=== PATIENT | male | born 1980 | race Caucasian/White ===

== ENCOUNTER 2020-07-30 22:35 | Emergency (ER) | payer OTHER, SELFPAY ==
--- NOTE | ~2020-07-30 | XR_ITS ---
XR shoulder LT min 2V DATE: 07/30/2020 23:56 INDICATION: Left shoulder pain TECHNIQUE: 4 views COMPARISON: None FINDINGS: No fracture, dislocation, periosteal reaction or bone destruction or abnormal soft tissue c alcification. IMPRESSION: No significant abnormality Reviewed, dictated and finalized at location A. IMPRESSION: No significant abnormality
--- NOTE | ~2020-07-30 | XR_ITS ---
XR shoulder RT min 2V DATE: 07/30/2020 23:56 INDICATION: Right shoulder pain TECHNIQUE: 4 views COMPARISON: None FINDINGS: There is degenerative spurring and joint space height at the acromioclavicular joint. No fracture or dislocation, periosteal reaction or bone destruction or abnormal soft tissue calcifica tion. IMPRESSION: Degenerative change at the right acromioclavicular joint Reviewed, dictated and finalized at location A.
[2020-07-30 22:51] VITALS: BP 155/99; PULSE 134; RESP 22; TEMP 36.6; O2SAT 98
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
--- NOTE | 2020-07-30 23:45 | ECG_ITS ---
Measurements Intervals [place] Rate: 121 P: 70 WI: 168 QRS: 78 QRSD: 96 T: 54 QT: 320 QTc: 456 Interpretive Statements SINUS TACHYCARDIA BASELINE WANDER- I, II, V4 ABNORMAL ECG Electronically Signed On 07-31-2020 6:42:07 CDT by Torey Carrizales D.O.
[2020-07-31 00:34] VITALS: BP 134/85; PULSE 99; RESP 18; O2SAT 100
[2020-07-31 00:49] VITALS: BP 138/86; PULSE 99; RESP 18; O2SAT 99
== END 2020-07-31 01:05 ==
PROVIDERS: Emergency Provider General Practice
DX: M25.512 Pain in left shoulder (principal); M25.511 Pain in right shoulder; M54.9 Dorsalgia, unspecified; G89.29 Other chronic pain; R00.0 Tachycardia, unspecified
CPT/HCPCS: 73030; 93005; 99284

== ENCOUNTER 2020-08-10 19:03 | Emergency (ER) | payer OTHER, SELFPAY ==
--- NOTE | 2020-08-10 19:09 | ED.GENADULT ---
HPI - General Adult General Chief complaint: Extremity Injury, Lower Stated complaint: right knee pain Time Seen by Provider: 08/10/20 19:09 Source: patient and RN notes reviewed Mode of arrival: ambulatory Limitations: no limitations History of Present Illness HPI narrative: 40-year-old male presents with concern for right lower leg redness, swelling, tenderness, pain that started several days ago. Reports he fell and cut his knee, symptoms started after that. He denies any recent immobilization, hospitalization, long car rides, airplane rides, does not smoke. Denies any chest pain, shortness of breath. Denies fever, malaise, chills, sweats. Denies limited range of motion, reports pain with weightbearing and range of motion. MD complaint: Leg pain Related Data Allergies Allergy/AdvReac Type Severity Reaction Status Date / Time No Known Allergies Allergy Unknown Unverified 07/30/20 22:38 Review of Systems Review of Systems: Narrative: CONSTITUTIONAL: Denies malaise, chills, sweats, or fever. CARDIOVASCULAR: Denies chest pain, palpitations RESPIRATORY: Denies cough or dyspnea. SKIN: Reports right lower leg redness, warmth, tenderness, swelling MUSCULOSKELETAL: Denies musculoskeletal pain NEUROLOGIC: Denies numbness, weakness All systems reviewed & are unremarkable except as noted in HPI and below PMFSH Past Medical History Medical History Chronic pain Surgical History Surgical History (Updated 07/31/20 @ 00:29 by Brooke Robison MD) No significant past surgical history Social History Social History Gender identity (if verbalized by the patient): Male Comments At time of signature, agree with nursing past medical, surgical, social and family history. There is no relevant family history pertinent to the presenting complaint Exam Narrative: Exam Narrative: GENERAL: Well-appearing, well-nourished, and in no acute distress. HEAD: Normocephalic, atraumatic. EYES: PERRLA, conjunctivae clear NECK: Supple. CHEST: Speaks in full sentences. No respiratory distress. HEART: Regular rate and rhythm. Normal and equal peripheral pulses. EXTREMITIES: Right lower leg has normal strength and sensation, normal range of motion. 5/5 strength with knee flexion and extension. Normal sensation with sensitivity to light touch and pain. No skin tenting, no devitalized tissue or atrophy, no trophic changes, no obvious deformity, alignment normal, no point tenderness, nearby joints and structures intact. Distal pulses palpable and equal bilaterally, skin warm, dry, pink. Capillary refill less than 3 seconds. SKIN: Warm, dry, no rash. Moderate right lower leg circumferential edema, erythema, warmth, tenderness not involving the knee. 2 linear scabs noted to the anterior right leg approximately 4 cm long. NEURO: Alert and oriented x3. PSYCH: Normal mood and affect Course Course Emergency Course: Patient is aware of diagnosis, understands and agrees to treatment plan. Anticipatory guidance given. Patient agrees to follow-up as directed and is aware of reasons to seek care at the emergency department. Portions of this record may have been created with voice recognition software Vital Signs Vital signs: Vital Signs Temperature 99.1 F 08/10/20 19:13 Pulse Rate 108 H 08/10/20 19:13 Respiratory Rate 16 08/10/20 19:13 Blood Pressure 132/82 08/10/20 19:13 Pulse Oximetry 99 08/10/20 19:13 Temperature 99.1 F 08/10/20 19:13 Pulse Rate 108 H 08/10/20 19:13 Respiratory Rate 16 08/10/20 19:13 Blood Pressure 132/82 08/10/20 19:13 Pulse Oximetry 99 08/10/20 19:13 Reviewed. Medical Decision Making MDM Narrative Medical decision making narrative: Exam findings and show no acute concerns or changes; patient is non-toxic appearing and is in no distress. Patient is appropriate for outpatient treatment and follow-up. Differential Diagnosis Differential Diagnosis:
[2020-08-10 19:13] VITALS: BP 132/82; PULSE 108; RESP 16; TEMP 37.3; O2SAT 99
== END 2020-08-10 19:20 | disposition home or self-care (01) ==
PROVIDERS: Emergency Provider Nurse Practitioner
DX: L03.115 Cellulitis of right lower limb (principal)
CPT/HCPCS: 99213; G0463

== ENCOUNTER 2020-10-24 23:21 | Emergency (ER) | payer OTHER, SELFPAY ==
--- NOTE | ~2020-10-24 | XR_ITS ---
XR shoulder LT min 2V DATE: 10/25/2020 00:19 INDICATION: Left shoulder pain TECHNIQUE: 4 views COMPARISON: None FINDINGS: No fracture or dislocation, periosteal reaction or bone destruction. IMPRESSION: No fracture or dislocation Reviewed, dictated and finalized at location A. UNICATIONS ADMINISTRATOR IMPRESSION: No fracture or dislocation
--- NOTE | ~2020-10-24 | XR_ITS ---
XR elbow RT 2V DATE: 10/25/2020 00:18 INDICATION: Elbow pain TECHNIQUE: AP and lateral views COMPARISON: None FINDINGS: There is minimal dorsal olecranon process spurring. No fracture or dislocation or joint effusion. IMPRESSION: No fracture or dislocation or joint effusion Reviewed, dictated and finalized at location A. CTOR DATA ARCHITECTURE
--- NOTE | ~2020-10-24 | XR_ITS ---
XR hip LT 2V w AP pelvis DATE: 10/25/2020 00:19 INDICATION: Left hip pain after fall TECHNIQUE: AP pelvis. AP and lateral views of left hip COMPARISON: None FINDINGS: No recent pelvic fracture or left hip fracture or dislocation is detected. There are smooth apparently chronic lucencies along the lateral margin of the left acetabulum. If there is strong con cern for pelvic or left acetabular fracture, consider CT pelvis examination. The pubic symphysis and sacroiliac joints are intact. IMPRESSION: No apparent recent pelvic fracture Reviewed, dictated and finalized at location A. INGS DRAFTER
[2020-10-24 23:22] VITALS: BP 159/105; PULSE 111; RESP 16; TEMP 36.8; O2SAT 96
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
[2020-10-24] MEDS: TETANUS,DIPHTHERIA,AC PERTUSSIS ADULT (0.5 ML) BOOSTRIX IM (23:47)
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
== END 2020-10-25 01:03 ==
PROVIDERS: Emergency Provider Emergency Medicine
DX: S00.83XA Contusion of other part of head, initial encounter (principal); S70.02XA Contusion of left hip, initial encounter; M25.521 Pain in right elbow; Z23 Encounter for immunization; W19.XXXA Unspecified fall, initial encounter; Y35.833A Legal intervention involving a conducted energy device, suspect injured, initial encounter
CPT/HCPCS: 73030; 73070; 73502; 90471; 90715; 99284

== ENCOUNTER 2021-07-03 08:31 | Emergency (ER) | payer OTHER, SELFPAY ==
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
--- NOTE | ~2021-07-03 | XR_ITS ---
EXAMINATION: [id number] INDICATION: Chest pain TECHNIQUE: A frontal view of the chest and 3 views of the right ribs were obtained. COMPARISON: None. FINDINGS: The lung volumes are low. The lungs are free of acute opacities. No pleural effusion or pne umothorax is seen. No displaced rib fracture is identified. Contrast from earlier CT partially opacif ies the urinary tract. IMPRESSION: 1. No acute cardiopulmonary abnormality or evidence of displaced rib fracture. Reviewed, dictated and finalized at location A.
[2021-07-03 08:41] VITALS: RESP 20; O2SAT 99
[2021-07-03 08:45] VITALS: BP 121/94; PULSE 78; RESP 14; TEMP 36.9; O2SAT 99
--- NOTE | 2021-07-03 08:57 | PC.NURSE ---
Pt. refusing chest x ray, refusing to sit up for x-ray until patient gets pain meds and a IV.
--- NOTE | 2021-07-03 09:21 | ED.FALL ---
HPI - Fall General Chief Complaint: Fall Stated Complaint: fall, rib pain Time Seen by Provider: 07/03/21 08:53 Source: RN notes reviewed History of Present Illness HPI Narrative: Patient presents to emergency department from home for right-sided rib and abdominal pain. Patient states he fell yesterday states he slipped and fell and landed on his right side states he had severe pain in his right ribs and abdomen since that time denies striking his head or any loss of consciousness states he is not taking pain medication at home states pain is worse with movement and deep inspiration denies any fevers or chills shortness of breath nausea vomiting or any other symptoms patient states he was attempting note pull up his pants in his bedroom when he slipped on something on the floor and believes he struck something on his right side but does not recall what he struck Related Data Allergies Allergy/AdvReac Type Severity Reaction Status Date / Time No Known Allergies Allergy Unknown Unverified 07/30/20 22:38 Review of Systems Review of Systems: Gen.: Denies fevers or chills Eyes: Denies eye pain or visual change ENT: Denies congestion Respiratory: Denies shortness of breath or cough CV: See HPI GI: Reports abdominal pain denies nausea vomiting or diarrhea denies hematuria Musculoskeletal: Denies back pain or muscle pain Neuro: Denies numbness, tingling, weakness or focal weakness Skin: Denies rash Except as documented, all other systems reviewed and negative [facility] Past Medical History Medical History (Updated 07/03/21 @ 10:41 by Shane Vargas DO) Chronic pain Surgical History Surgical History No significant past surgical history Social History Social History (Updated 07/03/21 @ 09:22 by Shane Vargas DO) Smoking status: Never smoker Gender identity (if verbalized by the patient): Male Exam Narrative: APPEARANCE: No acute distress, nontoxic, resting in bed EYES: EOMI HEENT: Normocephalic, atraumatic, OMM RESPIRATORY: No respiratory distress Clear to auscultation bilaterally with no rhonchi wheezing or rales. CARDIOVASCULAR: Regular rate and rhythm without murmurs rubs or gallops. Chest: Tender palpation of the right anterior lateral chest wall and regions of ribs 6 through 10 Swelling or ecchymosis pain increased inspiration and rotation of the torso ABDOMINAL: Soft, nondistended, tender palpation right upper quadrant right lower quadrant no tenderness left upper quadrant left lower quadrant no rebound or guarding MUSCULOSKELETAl: Moves all extremities. No clubbing, cyanosis or edema. NEURO: Awake and alert x 4. Following commands, speech normal, no focal deficits SKIN:: Warm, dry. No rashes lesions or abrasions PSYCHIATRIC: Normal affect/mood, Course Course Emergency Course: Discussed with my general surgeon Dr. Barahona agrees with plan for transfer Discussed with patient results of work-up discussed need for transfer. [facility] department accepts patient at this time Vital Signs Vital signs: Vital Signs Respiratory Rate 20 07/03/21 08:41 Pulse Oximetry 99 07/03/21 08:41 Temperature 98.4 F 07/03/21 08:45 Pulse Rate 80 07/03/21 10:42 Respiratory Rate 12 07/03/21 10:42 Blood Pressure 102/59 L 07/03/21 10:42 Pulse Oximetry 99 07/03/21 10:42 MDM - Fall Lab Data Result diagrams: 07/03/21 09:40 07/03/21 09:51 Labs: Lab Results 07/03/21 07/03/21 07/03/21 Range/Units 09:40 09:40 09:40 WBC 7.8 (4.5-10.0) K/mm3 RBC 4.16 L (4.6-6.20) M/mm3 Hgb 12.7 L (14.0-18.0) g/dL Hct 36.8 L (42.0-52.0) % MCV 88.5 (80-100) fl MCH 30.5 (26-34) pg MCHC 34.5 (32-36) g/dl RDW 12.7 (11.5-14.5) % Plt Count 189 (150-375) k/mm3 MPV 9.0 (7.4-10.4) fl Immature Gran % (Auto) 0
[2021-07-03] MEDS: MORPHINE SULFATE (*CRX) 4 MG/ML INJ IV PUSH (09:40)
[2021-07-03 09:52] LABS: Basophils Percent Auto 0.4 % (0.2-1.2); Eosinophils Absolute Auto 0.1 K/mm3 (0-0.3); Eosinophils Percent Auto 0.9 % (0-4.4); Hematocrit 36.8 % (42.0-52.0); Hemoglobin 12.7 g/dL (14.0-18.0); Immature Granulocyte Absolute 0.01 K/mm3 (0.00-0.031); Immature Granulocyte Percent A 0.1 % (0-0.5); Lymphocytes Absolute Auto 2.09 K/mm3 (0.9-3.2); Lymphocytes Percent Auto 26.8 % (18.3-44.2); Mean Corpuscular HGB Conc 34.5 g/dl (32-36); Mean Corpuscular Hemoglobin 30.5 pg (26-34); Mean Corpuscular Volume 88.5 fl (80-100); Monocytes Absolute Auto 0.6 K/mm3 (0.1-0.6); Monocytes Percent Auto 7.2 % (2.6-8.5); Neutrophils Percent Auto 64.6 % (45.5-73.1); Platelet Count Result 189 k/mm3 (150-375); Red Blood Count 4.16 M/mm3 (4.6-6.20); Red Cell Distribution Width 12.7 % (11.5-14.5); White Blood Count 7.8 K/mm3 (4.5-10.0)
[2021-07-03 09:54] LABS: Estimated CRCL calculation 142 ml/min; Estimated Glomerular Filt Rate > 60
[2021-07-03 10:11] LABS: Alanine Aminotransferase 107 U/L (4-50); Albumin Level 4.3 g/dL (3.5-5.1); Alkaline Phosphatase 45 U/L (38-126); Anion Gap 4 mmol/L (8-16); Aspartate Amino Transferase 62 U/L (17-59); Bilirubin,Total 1.4 mg/dL (0.2-1.3); Blood Urea Nitrogen 12 mg/dL (9-20); Calcium 8.8 mg/dL (8.4-10.2); Carbon Dioxide 26 mmol/L (22-30); Chloride 106 mmol/L (98-107); Estimated CRCL calculation 142 ml/min; Estimated Glomerular Filt Rate > 60; Glucose 138 mg/dL (65-110); Potassium 4.6 mmol/L (3.4-5.0); Sodium 136 mmol/L (137-145)
[2021-07-03 10:29] LABS: INR 1.1; Prothrombin Time 14.1 Seconds (11.1-14.7)
[2021-07-03 10:30] LABS: Partial Thromboplastin Time 27.9 SECONDS (22.3-36.8)
[2021-07-03] MEDS: SODIUM CHLORIDE 0.9% IV 1,000 ML 999 ML IV CONT (10:41)
[2021-07-03 10:42] VITALS: BP 102/59; PULSE 80; RESP 12; O2SAT 99
--- NOTE | 2021-07-03 10:45 | PC.NURSE ---
[facility] no cem [facility] accepted trans to [facility] ETA 15min Trip [id number]
[2021-07-03 11:20] VITALS: BP 135/76; PULSE 90; RESP 14; O2SAT 99
== END 2021-07-03 11:30 | disposition short-term general hospital (02) ==
PROVIDERS: Emergency Provider Emergency Medicine
DX: S36.032A Major laceration of spleen, initial encounter (principal); R07.89 Other chest pain; W01.0XXA Fall on same level from slipping, tripping and stumbling without subsequent striking against object, initial encounter
CPT/HCPCS: 36415; 71101; 74177; 80053; 85025; 85610; 85730; 86850; 86900; 86901; 96361; 96374; 99285; J2270; J7030; Q9967

== ENCOUNTER 2021-09-04 17:00 | Observation (INO) | payer OTHER, SELFPAY ==
--- NOTE | ~2021-09-04 | XR_ITS ---
EXAMINATION: XR elbow LT min 3V DATE: 09/04/2021 18:17 INDICATION: Left elbow pain and swelling. TECHNIQUE: 4 views of left elbow were obtained. COMPARISON: None. FINDINGS: Bone alignment is normal. No fracture. Joint spaces are well maintained. There is no elbow joint effusion. IMPRESSION: 1. No fracture. Reviewed, dictated and finalized at location A. IMPRESSION: 1. No fracture.
[2021-09-04 17:09] VITALS: BP 116/66; PULSE 90; RESP 18; TEMP 36.8; O2SAT 100
--- NOTE | 2021-09-04 17:36 | ED.GENADULT ---
HPI - General Adult General Chief complaint: Skin/Abscess/Foreign Body Stated complaint: open wounds/sores to right lower leg Time Seen by Provider: 09/04/21 17:32 Source: patient Mode of arrival: ambulatory Limitations: no limitations History of Present Illness HPI narrative: Patient is here for evaluation of right leg swelling and redness. He has multiple lesions on his body, swelling of his right leg with erythema all the way up to his hip. Swelling of his left foot, left elbow with erythema. He has multiple lesions on his right arm as well as bruising. Patient tells me he has been sleeping in his car for the last year. Review of the medical record shows that he was seen for the same complaint last July. He has a history of IV drug use, he states that he has not been using for several months. He denies any alcohol use. When asked it went if he was in pain at this time he stated that he is essentially. Onset (ago): year(s) Related Data Home Medications Medication Instructions Recorded Confirmed No Home Medications 09/04/21 09/04/21 Allergies Allergy/AdvReac Type Severity Reaction Status Date / Time No Known Allergies Allergy Unknown Unverified 09/04/21 17:14 Review of Systems Review of Systems: All systems reviewed & are unremarkable except as noted in HPI and below PMFSH Past Medical History Medical History Cellulitis (07/2020) Chronic pain Homelessness Intravenous drug abuse Surgical History Surgical History History of splenectomy (~06/2021) Social History Social History Smoking status: Current every day smoker Tobacco type: e-cigarettes/vaping Alcohol intake: never Substance use: former Last use: 2 mos ago Gender identity (if verbalized by the patient): Male Spiritual care concerns: No Exam Const: General: no acute distress and ill appearing Orientation/consciousness: patient oriented x3 HENMT: Head: normal to inspection Mouth: Yes dry mucous membranes Eyes: Conjunctivae: conjunctivae normal Pupils: Equal, round and reactive pupils present Neck: Neck: no lymphadenopathy Resp: Effort & Inspection: normal respiratory effort Auscultation: clear to auscultation bilaterally Cardio: Rate: regular rate Rhythm: regular rhythm GI: GI Palp: Yes Soft to palpation Auscultation: normal bowel sounds : Male General Exam: Yes normal external exam Skin: General skin exam: erythema (right LE extending up to hip. also over left elbow) and induration (right LE) Lesions: lesion noted (right forearm, bruising as well ) Neuro: General: patient oriented x3 Extrem: General: edema (feet, left elbow, both hands.) bilateral Psych: Appearance: disheveled Course Course Emergency Course: Spoke with hospitalist regarding admission. Will admit, recommends adding vancomycin to the antibiotics given his patient's history of IV drug use. Will add urine drug screen and an alcohol level. Will give another NS bolus due to elevated glucose. Vital Signs Vital signs: Vital Signs Temperature 36.8 C 09/04/21 17:09 Pulse Rate 90 09/04/21 17:09 Respiratory Rate 18 09/04/21 17:09 Blood Pressure 116/66 09/04/21 17:09 Pulse Oximetry 100 09/04/21 17:09 Temperature 36.8 C 09/04/21 17:09 Pulse Rate 78 09/04/21 19:36 Respiratory Rate 16 09/04/21 19:36 Blood Pressure 118/73 09/04/21 19:36 Pulse Oximetry 98 09/04/21 19:36 Medical Decision Making Vital Signs Vital Signs: Vital Signs Temperature 36.8 C 09/04/21 17:09 Pulse Rate 90 09/04/21 17:09 Respiratory Rate 18 09/04/21 17:09 Blood Pressure 116/66 09/04/21 17:09 Pulse Oximetry 100 09/04/21 17:09 Temperature 36.8 C 09/04/21 17:09 Pulse Rate 78 09/04/21 19:36 Respiratory Rate 16 09/04/21 19:36 Blood Pressure 118/73 09/04/21 19:36 Pulse Oximetry 98 09/04
[2021-09-04] MEDS: SODIUM CHLORIDE 0.9% IV 1,000 ML 999 ML IV CONT ×2 (18:07→20:16)
[2021-09-04 18:28] LABS: Basophils Percent Auto 0.1 % (0.2-1.2); Eosinophils Percent Auto 0.1 % (0-4.4); Hematocrit 42.5 % (42.0-52.0); Hemoglobin 14.7 g/dL (14.0-18.0); Immature Granulocyte Absolute 0.01 K/mm3 (0.00-0.031); Immature Granulocyte Percent A 0.1 % (0-0.5); Lymphocytes Absolute Auto 1.22 K/mm3 (0.9-3.2); Lymphocytes Percent Auto 18.1 % (18.3-44.2); Mean Corpuscular HGB Conc 34.6 g/dl (32-36); Mean Corpuscular Hemoglobin 31.3 pg (26-34); Mean Corpuscular Volume 90.4 fl (80-100); Mean Platelet Volume 9.7 fl (7.4-10.4); Monocytes Absolute Auto 0.5 K/mm3 (0.1-0.6); Monocytes Percent Auto 7.1 % (2.6-8.5); Neutrophils Percent Auto 74.5 % (45.5-73.1); Platelet Count Result 132 k/mm3 (150-375); Red Cell Distribution Width 12.5 % (11.5-14.5); White Blood Count 6.7 K/mm3 (4.5-10.0)
[2021-09-04 18:37] LABS: Alanine Aminotransferase 46 U/L (4-50); Alkaline Phosphatase 43 U/L (38-126); Anion Gap 9 mmol/L (8-16); Aspartate Amino Transferase 126 U/L (17-59); Bilirubin,Total 0.9 mg/dL (0.2-1.3); Blood Urea Nitrogen 12 mg/dL (9-20); Calcium 8.5 mg/dL (8.4-10.2); Carbon Dioxide 27 mmol/L (22-30); Chloride 98 mmol/L (98-107); Estimated CRCL calculation 159 ml/min; Estimated Glomerular Filt Rate > 60; Glucose 236 mg/dL (65-110); Potassium 3.3 mmol/L (3.4-5.0); Sodium 134 mmol/L (137-145)
[2021-09-04 19:36] VITALS: BP 118/73; PULSE 78; RESP 16; O2SAT 98
--- NOTE | 2021-09-04 19:54 | PM.IMHP ---
H&P: [facility] History of Present Illness Date/Time: 09/04/21 19:54 Chief Complaint: Draining wounds to right leg Narrative: Source of information: Patient who is extremely poor historian. 41-year-old male with past medical history of IV drug abuse, homelessness, recent splenic laceration with splenectomy and prior cellulitis who presented to the ER with wounds to his right leg that her draining. The patient reports that he has had wounds to his right lower leg since June when he presented to the ER for a splenic laceration after a fall. He believes that the wounds are due to pressure ulcers from him living in his car and not being able to lay down. The patient's report of events does not make sense. He states that he went to [facility] yesterday and when the staff evaluated him they put some material like Tegaderm on his legs. After this was placed on his legs he developed erythema. He has a chronic swelling of his legs that he reports is due to having his foot chronically press against his gas pedal in his car. He denies any shortness of breath, chest pain, cough or congestion. He denies history of DVT. He reports that the wounds on his legs have been draining somewhat but he does not give me great details regarding this. He denies having any fevers. He reports that he has not used any stimulants/amphetamines since his hospitalization and June. He usually does use IV drugs. He is adamant that he has not used any substances in a couple of months but his urine drug screen indicates that he is not being honest. He denied any recent marijuana use to me but then reported to nursing staff that he smoked a bowl of something and may have had something else in it. When asked if he is having pain he reports that he is having pain all over. I tried to elicit whether not patient is having increased pain in his right lower extremity or elbow where he has increased erythema and patient states ?I guess it should hurt more.? He denies any nausea or vomiting. His last bowel movement was today and was normally formed without hematochezia or melena. He has not had a COVID vaccine. He has never been diagnosed with COVID. Review of Systems Review of Systems: 12 systems were reviewed with pertinent positives and negatives per HPI. Except as documented in the HPI, all other systems were reviewed and are negative. [facility] Past Medical History Medical History (Updated 09/04/21 @ 23:54 by Rebecca Craig DO) Cellulitis (07/2020) Chronic pain Hepatitis C Homelessness Intravenous drug abuse Splenic laceration (07/03/21) The patient was transferred to [place]. He reports that he is hospitalized for several days and they were getting ready to discharge him the next day so he decided to leave [place] Surgical History Surgical History (Updated 09/04/21 @ 23:42 by Rebecca Craig DO) No pertinent past surgical history Family History Family History (Updated 09/04/21 @ 23:43 by Rebecca Craig DO) Mother Psychiatric illness Father , at age 52 Unknown family medical history Grandparent Diabetes mellitus Social History Social History (Updated 09/04/21 @ 23:45 by Rebecca Craig DO) Social History: He is homeless. He has had multiple altercations with the law. He has history of tobacco abuse, vaping, IV drug abuse and marijuana use. He does not know anything about his biological father. He states that he has multiple siblings but he does not really know them. He reports that his mother's crazy like all women. He does not have a primary care physician. Smoking status: Current every day smoker Tobacco type: e-cigarettes/vaping Alcohol intake: never Substance use: former Last use: 2 mos ago Gender identity (if verbalized by the patient): Male Spiritual care concerns: No Meds Home Medications and Allergies Home Medications Medication Instructions Recorded Confirmed Type No Home Med
[2021-09-04] MEDS: POTASSIUM CHLORIDE 20 MEQ TABLET 40 MEQ PO (20:16)
[2021-09-04 20:45] LABS: Ethanol < 10 mg/dL (<10)
--- NOTE | 2021-09-04 20:45 | ADMGEN ---
This patient, Chalo Bautista, was admitted to Medical Room 248-01. Patient/family oriented to hospital policies and general routines including ID bracelet, bed and alarms, visiting hours, pain management, procedures, bathroom and other care routines, personal items, smoking policy, room service/diet, and visiting hours. Information on how to activate the Rapid Response Team has been discussed. Patient/Family are encouraged to report perceived risks to care and to ask questions if they do not understand what they are told or what they should do.
[2021-09-04 21:01] LABS: Amphetamine Screen Urine Positive (Negative); Barbiturate Screen Urine Negative (Negative); Benzodiazepines Screen Urine Negative (Negative); Cannabinoid Screen Urine Negative (Negative); Cocaine Screen Urine Negative (Negative); Methadone Screen Urine Negative (Negative); Opiate Screen Urine Negative (Negative); Phencyclidine Screen Urine Negative (Negative)
[2021-09-04 21:36] VITALS: BMI 31.0
[2021-09-04] MEDS: ENOXAPARIN 100 MG/ML SYRINGE 82 MG SUB-Q (21:44)
[2021-09-04 21:55] LABS: Glucose Point of Care 128 mg/dl (65-105)
[2021-09-04 22:00] VITALS: BP 106/58; PULSE 80; RESP 22; TEMP 36.5; O2SAT 100
--- NOTE | 2021-09-04 23:02 | PC.NURSE ---
pt poor historian, unable to answer most of my questions regarding prior health history. When asked about prior drug use he states he last used 2 month ago and told me that it was speed that he used. I informed him that he was positive for amphetamines and then he states he may have smoked a bowl 1-5 days ago but cannot remember.
[2021-09-05] VITALS: BP 111/63; PULSE 88; RESP 20; TEMP 36.3; O2SAT 98
--- NOTE | 2021-09-05 01:10 | PC.NURSE ---
called to pt room by Maria De Jesus Bassett CNA. Patient cursing and screaming very angry that he cannot walk to bathroom unassisted. Patient is very unsteady and stated he has had multiple falls. I explained to patient that it is for his safety that we want to make sure he gets into the bathroom. He stood up and threw his blanket at me walked toward the bathroom. He slammed the door shut. vape was found in the bed. supervisor trust accounts called as well as a marcello you. We heard a loud bang found the patient sitting on the floor of the shower. Patient denies falling. Patient pulled out his IV, blood all over the floor. supervisor trust accounts with the patient in the bathroom, pt screaming and cursing stating he wants privacy. Wandy explained that for his safety he cannot walk without assistance and that his behavior was unacceptable. Security in the room and [facility] was called as the situation kept escalating. Pt agreed to get into a wheelchair to get back into bed. patient continues to curse at the staff. Patient looking for his vape accusing staff of taking his belongings. explained to patient that he could not have that in his possession and it was locked up in his closet. Patient was moved to room 245 for closer observation. Wandy supervisor trust accounts restarted patient IV line.
[2021-09-05 05:42] LABS: Eosinophils Percent Auto 0.4 % (0-4.4); Hematocrit 37.3 % (42.0-52.0); Hemoglobin 12.9 g/dL (14.0-18.0); Immature Granulocyte Absolute 0.01 K/mm3 (0.00-0.031); Immature Granulocyte Percent A 0.2 % (0-0.5); Immature Platelet Fraction Pct 2.6 % (0.9-11.2); Lymphocytes Percent Auto 28.8 % (18.3-44.2); Mean Corpuscular HGB Conc 34.6 g/dl (32-36); Mean Corpuscular Hemoglobin 31.5 pg (26-34); Mean Corpuscular Volume 91.2 fl (80-100); Mean Platelet Volume 9.5 fl (7.4-10.4); Monocytes Absolute Auto 0.5 K/mm3 (0.1-0.6); Monocytes Percent Auto 10.5 % (2.6-8.5); Neutrophils Absolute Auto 2.9 K/mm3 (1.3-6.7); Neutrophils Percent Auto 60.1 % (45.5-73.1); Platelet Count Result 122 k/mm3 (150-375); Red Blood Count 4.09 M/mm3 (4.6-6.20); Red Cell Distribution Width 12.5 % (11.5-14.5); White Blood Count 4.9 K/mm3 (4.5-10.0)
--- NOTE | 2021-09-05 05:52 | PC.NURSE ---
pt called for a soda then asked about his antibiotics. Said he needed a prescription for antibiotics. He said he was going to have to go to the bathroom again soon and didn't need us to call the police to get him there. I again explained that with his balance issues and hx of multiple falls someone would need to assist him to the restroom. I told him that was not the reason the police were called to which he replied I know you were scared. He stated he falls everyday and it's no big deal, he does not need our help. He was starting to raise his voice. I told him he would need to speak with the this morning.
[2021-09-05 05:58] LABS: Alanine Aminotransferase 40 U/L (4-50); Albumin Level 3.5 g/dL (3.5-5.1); Alkaline Phosphatase 41 U/L (38-126); Anion Gap 6 mmol/L (8-16); Aspartate Amino Transferase 101 U/L (17-59); Bilirubin,Total 0.5 mg/dL (0.2-1.3); Blood Urea Nitrogen 8 mg/dL (9-20); Carbon Dioxide 29 mmol/L (22-30); Chloride 104 mmol/L (98-107); Creatine Kinase 1468 U/L (55-170); Estimated CRCL calculation 190 ml/min; Estimated Glomerular Filt Rate > 60; Glucose 152 mg/dL (65-110); Potassium 3.6 mmol/L (3.4-5.0); Sodium 139 mmol/L (137-145)
[2021-09-05 06:05] LABS: CRP 18.6 mg/dL (<1.0)
[2021-09-05 08:09] LABS: Glucose Point of Care 117 mg/dl (65-105)
--- NOTE | 2021-09-05 08:55 | PC.NURSE ---
pt was up walking in room with no clothes on, offered hospital pants to pt and he refused, he states he wants his clothes so he can leave, I asked pt if he was going to leave against medical advice and reviewed with him that he is on several antibiotics that he needs to receive due to infection in legs, he insists we give him his clothes, pt given the clothing he has here and IV removed, pt refused to sign AMA form, pt left ambulatory in [facility] with no shirt or socks or shoes, security and roundhouse firer/fireman notified
--- NOTE | 2021-09-05 16:31 | PM.DS ---
DS: Admitting Diagnosis Discharge Date 09/05/21 Admitting Diagnosis Cellulitis DS: Discharge Diagnosis Discharge Diagnosis (1) Cellulitis of right leg: Code(s): L03.115 - Cellulitis of right lower limb Status: Acute (2) Cellulitis of left elbow: Code(s): L03.114 - Cellulitis of left upper limb Status: Acute (3) Intravenous drug abuse: Code(s): F19.10 - Other psychoactive substance abuse, uncomplicated Status: Acute (4) Homelessness: Code(s): Z59.00 - Homelessness unspecified Status: Acute (5) Acute hyperglycemia: Code(s): R73.9 - Hyperglycemia, unspecified Status: Acute (6) Hypokalemia: Code(s): E87.6 - Hypokalemia Status: Acute DS: Summary Hospital Course Hospital Course: 41-year-old male with past medical history of IV drug abuse, homelessness, recent splenic laceration with splenectomy and prior cellulitis who presented to the ER with wounds to his right leg that her draining. The patient reports that he has had wounds to his right lower leg since June when he presented to the ER for a splenic laceration after a fall. He believes that the wounds are due to pressure ulcers from him living in his car and not being able to lay down. The patient's report of events does not make sense. He states that he went to [facility] yesterday and when the staff evaluated him they put some material like Tegaderm on his legs. After this was placed on his legs he developed erythema. He has a chronic swelling of his legs that he reports is due to having his foot chronically press against his gas pedal in his car. He denies any shortness of breath, chest pain, cough or congestion. He denies history of DVT. He reports that the wounds on his legs have been draining somewhat but he does not give me great details regarding this. He denies having any fevers. He reports that he has not used any stimulants/amphetamines since his hospitalization and June. He usually does use IV drugs. He is adamant that he has not used any substances in a couple of months but his urine drug screen indicates that he is not being honest. He denied any recent marijuana use to me but then reported to nursing staff that he smoked a bowl of something and may have had something else in it. When asked if he is having pain he reports that he is having pain all over. I tried to elicit whether not patient is having increased pain in his right lower extremity or elbow where he has increased erythema and patient states ?I guess it should hurt more.? He denies any nausea or vomiting. His last bowel movement was today and was normally formed without hematochezia or melena. Patient has cellulitis of his right leg with weeping open wounds and cellulitis of his left elbow with some associated swelling. Patient does have significant swelling of the right lower extremity extending up through the thigh also bring up concern for possible underlying DVT. Patient was started on cefazolin in the ER and I requested the addition of vancomycin given the patient's prior history of IV drug abuse. Blood cultures have been obtained and are pending. Repeat CBC has been ordered for a.m.. Venous Doppler ultrasound was ordered from the ER but has not yet been completed. Will place patient on therapeutic Lovenox until DVT ruled out. The patient does have a significant hyperglycemia ER with glucose of 236 which was down to 117 this morning. He does not have a history of diabetes mellitus. Hyperglycemia could be due to acute stress reaction from his underlying cellulitis versus new onset diabetes mellitus. Hemoglobin A1c was 5.0. The patient had mild hypokalemia and was provided p.o. potassium supplementation in the ER. Repeat electrolyte panel unremarkable. The patient's AST is elevated. He does report a recent diagnosis of hepatitis C October 2020 but has not followed up for treatment. Early this morning, the casandra
== END 2021-09-05 09:00 | disposition left against medical advice (07) ==
LOC: ANHED 20:02 → ANH2MED 23:44
PROVIDERS: Physician Assistant; Admitting Provider Internal Medicine; Emergency Provider Emergency Medicine; Visit Provider Internal Medicine
DX: L03.115 Cellulitis of right lower limb (principal); L03.114 Cellulitis of left upper limb; F19.10 Other psychoactive substance abuse, uncomplicated; R73.9 Hyperglycemia, unspecified; E87.6 Hypokalemia; F17.290 Nicotine dependence, other tobacco product, uncomplicated; Z59.02 Unsheltered homelessness
CPT/HCPCS: 36415; 73080; 80053; 80307; 82550; 82948; 83036; 85025; 85055; 86140; 87040; 96361; 96365; 96367; 96372; 99285; A9270; G0378; G0379; J0690; J1650; J3370; J7030

== ENCOUNTER 2022-04-20 02:40 | Emergency (ER) | payer OTHER, SELFPAY ==
[2022-04-20 02:48] VITALS: BP 142/89; PULSE 94; RESP 16; TEMP 36.7; O2SAT 100
--- NOTE | 2022-04-20 02:55 | ED.DENTAL ---
HPI - Dental/Oral General Chief complaint: Dental/Oral Stated complaint: tooth pain Time Seen by Provider: 04/20/22 02:49 Source: patient Mode of arrival: ambulatory Limitations: no limitations History of Present Illness HPI Narrative: Patient is a 42-year-old male complain abdominal pain, 8 out of 10, left lower molar, started approximately 3 to 4 days ago. Patient also complaining of sore throat, started 2 days ago. Patient denies any fever chills. Related Data Allergies Allergy/AdvReac Type Severity Reaction Status Date / Time No Known Allergies Allergy Unknown Verified 04/20/22 02:50 Review of Systems Review of Systems: Per HPI All systems reviewed & are unremarkable except as noted in HPI and below PMFSH Past Medical History Medical History Cellulitis (07/2020) Chronic pain Hepatitis C Homelessness Intravenous drug abuse Splenic laceration (07/03/21) The patient was transferred to [place]. He reports that he is hospitalized for several days and they were getting ready to discharge him the next day so he decided to leave [place] Surgical History Surgical History No pertinent past surgical history Family History Family History Mother Psychiatric illness Father , at age 52 Unknown family medical history Grandparent Diabetes mellitus Social History Social History Social History: He is homeless. He has had multiple altercations with the law. He has history of tobacco abuse, vaping, IV drug abuse and marijuana use. He does not know anything about his biological father. He states that he has multiple siblings but he does not really know them. He reports that his mother's crazy like all women. He does not have a primary care physician. Smoking status: Current every day smoker Tobacco type: e-cigarettes/vaping Alcohol intake: never Substance use: former Last use: 2 mos ago Gender identity (if verbalized by the patient): Male Spiritual care concerns: No Exam Const: General: cooperative, healthy appearing, comfortable, no acute distress, well developed, alert and awake; No confusion Orientation/consciousness: oriented to person, oriented to place, oriented to time, patient oriented x3 and No confusion Limitations: no limitations HENMT: Head: normal to inspection, normocephalic and atraumatic Ears: hearing grossly normal bilaterally, TM normal on the right and TM normal on the left General nose exam: Normal external nose present, Normal nares present and No nasal discharge present Face and sinus: normal facial exam Mouth: Yes Normal oral and palatal mucosa present, Yes lip normal, Yes tongue normal and Yes oropharynx normal Throat: posterior oropharynx normal, tonsils normal and uvula midline Other: Widespread dental decay, caries. Poor oral hygiene. Eyes: General: appearance normal, both eyes and all related structures Pupils: Equal, round and reactive pupils present EOM: EOMs intact bilaterally Neck: Neck: normal visual inspection, full ROM, no lymphadenopathy and no meningeal signs Chest: Chest palpation & inspection: normal inspection of the chest Resp: Effort & Inspection: normal respiratory effort, able to speak in complete sentences, no respiratory distress and not tachypneic Auscultation: clear to auscultation bilaterally, no crackles, no rales, no rhonchi and no wheezes Cardio: Rate: regular rate Rhythm: regular rhythm GI: Inspection: normal to inspection GI Palp: No abdominal tenderness, Yes Soft to palpation, No Tenderness to palpation present (GI), No Guarding due to palpation present (GI), No Rigid due to palpation and No Rebound tenderness present Auscultation: normal bowel sounds : General: Yes no CVA tenderness Back/Spine/Pe
== END 2022-04-20 03:06 | disposition home or self-care (01) ==
PROVIDERS: Emergency Provider Emergency Medicine
DX: K02.9 Dental caries, unspecified (principal); J02.9 Acute pharyngitis, unspecified; F17.290 Nicotine dependence, other tobacco product, uncomplicated; Z59.00 Homelessness unspecified
CPT/HCPCS: 96372; 99283; J1885

== ENCOUNTER 2022-05-28 11:26 | Emergency (ER) | payer OTHER, SELFPAY ==
--- NOTE | 2022-05-28 11:29 | ED.DENTAL ---
HPI - Dental/Oral General Chief complaint: Dental/Oral Stated complaint: Teeth Pain Time Seen by Provider: 05/28/22 11:54 Mode of arrival: ambulatory Limitations: no limitations History of Present Illness HPI Narrative: 42-year-old male presents with concern for upper and lower left-sided dental pain. He reports pain has occurred for about 1 week. He denies any new dental trauma. Reports he thinks he may have lost a filling at some point. He denies difficulty swallowing, fever, chills, sweats. MD Complaint: tooth pain Related Data Allergies Allergy/AdvReac Type Severity Reaction Status Date / Time No Known Allergies Allergy Unknown Verified 05/28/22 11:35 Review of Systems Review of Systems: CONSTITUTIONAL: Denies malaise, chills, sweats, or fever. EYES: Denies visual changes ENT: Denies rhinorrhea, congestion, sinus pain, otalgia. Reports left upper and lower dental pain CARDIOVASCULAR: Denies chest pain, palpitations RESPIRATORY: Denies cough or dyspnea. SKIN: Denies rash or itching. MUSCULOSKELETAL: Denies myalgia. NEUROLOGIC: Denies numbness, weakness, or headache. All systems reviewed & are unremarkable except as noted in HPI and below PMFSH Past Medical History Medical History Cellulitis (07/2020) Chronic pain Hepatitis C Homelessness Intravenous drug abuse Splenic laceration (07/03/21) The patient was transferred to [place]. He reports that he is hospitalized for several days and they were getting ready to discharge him the next day so he decided to leave [place] Surgical History Surgical History No pertinent past surgical history Family History Family History Mother Psychiatric illness Father , at age 52 Unknown family medical history Grandparent Diabetes mellitus Social History Social History Social History: He is homeless. He has had multiple altercations with the law. He has history of tobacco abuse, vaping, IV drug abuse and marijuana use. He does not know anything about his biological father. He states that he has multiple siblings but he does not really know them. He reports that his mother's crazy like all women. He does not have a primary care physician. Smoking status: Current every day smoker Tobacco type: e-cigarettes/vaping Alcohol intake: never Substance use: former Last use: 2 mos ago Gender identity (if verbalized by the patient): Male Spiritual care concerns: No Comments At time of signature, agree with nursing past medical, surgical, social and family history. There is no relevant family history pertinent to the presenting complaint Exam Narrative: GENERAL: Nontoxic appearing and in no acute distress. HEAD: Normocephalic, atraumatic. EYES: PERRLA, sclera clear ENT: Nares clear, no rhinorrhea or epistaxis. Mucous membranes moist. Oropharynx without erythema or lesions. Tonsils not enlarged and without exudate. Filling noted in tooth #14, caries noted tooth #19 NECK: Supple. No lymphadenopathy. CHEST: No respiratory distress. Speaks in full sentences. HEART: Regular rate and rhythm. SKIN: Warm, dry, no visible rash. NEURO: Alert and oriented x3. PSYCH: Flat affect Course Course Emergency Course: Patient is aware of diagnosis, understands and agrees to treatment plan. Anticipatory guidance given. Patient agrees to follow-up as directed and is aware of reasons to seek care at the emergency department. Portions of this record may have been created with voice recognition software Level of Care: Express Care Visit Vital Signs Vital signs: Reviewed. MDM - Dental/Oral MDM Narrative Medical decision making narrative: Patients pain and complaint coupled with physical findings are consistant with dentalgia. The
[2022-05-28 11:35] VITALS: BP 128/78; PULSE 90; RESP 16; TEMP 37; O2SAT 99
== END 2022-05-28 12:04 | disposition home or self-care (01) ==
PROVIDERS: Emergency Provider Nurse Practitioner; PCP Physician Assistant
DX: K08.89 Other specified disorders of teeth and supporting structures (principal); F17.290 Nicotine dependence, other tobacco product, uncomplicated; Z59.00 Homelessness unspecified
CPT/HCPCS: 99213; G0463

== ENCOUNTER 2023-03-11 18:19 | Emergency (ER) | payer OTHER, SELFPAY ==
[2023-03-11 18:24] VITALS: BP 126/90; PULSE 110; RESP 20; TEMP 36.3; O2SAT 97
--- NOTE | 2023-03-11 18:48 | PC.NURSE ---
pt being argumentative, non complaint with requests and directions. pt not responsive to requests from staff or security. Yamileht HANNA called to help try and de-escalate the pt.
--- NOTE | 2023-03-11 18:59 | PC.NURSE ---
pt left in custody of [facility] . given scrubs and socks as pt had none at 1857
== END 2023-03-11 18:57 | disposition left against medical advice (07) ==
LOC: ANHED 19:09
PROVIDERS: PCP Physician Assistant
DX: R10.9 Unspecified abdominal pain (principal)
CPT/HCPCS: 99199

== ENCOUNTER 2023-07-22 07:17 | Emergency (ER) | payer OTHER, SELFPAY ==
--- NOTE | 2023-07-22 07:31 | ED.GENADULT ---
HPI - General Adult General Chief complaint: Unspecified Stated complaint: Rash, std Time Seen by Provider: 07/22/23 07:26 Source: patient Mode of arrival: ambulatory Limitations: no limitations History of Present Illness HPI narrative: 43 years old white male presents with 9 itching skin rash on the upper extremity and trunk anteriorly and posteriorly started over 1 week ago. Patient is homeless, history of HIV and syphilis over 1 year ago, currently on medication by his infectious disease doctor. Patient reported history of contact dermatitis in the past to different staff. Currently he denies any fever, chills, nausea, vomiting, chest pain, shortness of breath, abdominal pain or back pain or joint pain. Related Data Allergies Allergy/AdvReac Type Severity Reaction Status Date / Time No Known Allergies Allergy Unknown Verified 07/22/23 07:51 Review of Systems Review of Systems: All systems reviewed & are unremarkable except as noted in HPI and below PMFSH Past Medical History Medical History Cellulitis (07/2020) Chronic pain Hepatitis C Homelessness Intravenous drug abuse Splenic laceration (07/03/21) The patient was transferred to [place]. He reports that he is hospitalized for several days and they were getting ready to discharge him the next day so he decided to leave [facility] Surgical History Surgical History No pertinent past surgical history Family History Family History Mother Psychiatric illness Father , at age 52 Unknown family medical history Grandparent Diabetes mellitus Social History Social History Social History: He is homeless. He has had multiple altercations with the law. He has history of tobacco abuse, vaping, IV drug abuse and marijuana use. He does not know anything about his biological father. He states that he has multiple siblings but he does not really know them. He reports that his mother's crazy like all women. He does not have a primary care physician. Smoking status: Current every day smoker Tobacco type: e-cigarettes/vaping Alcohol intake: never Substance use: former Last use: 2 mos ago Gender identity (if verbalized by the patient): Male Spiritual care concerns: No Exam Narrative: General appearance: Well-developed, well-nourished Skin: Macular rash all over the upper extremity, lower extremity and chest abdomen and back. No blisters, no warmth, no tenderness Head: Normocephalic, nontraumatic Eyes: Clear conjunctiva ENT: Oropharynx normal, ears normal, nose normal Neck: Supple, nontender Chest and respiratory: Airway patent, no respiratory distress, no accessory muscle use Heart: Regular rate/rhythm Abdomen: Soft, nontender, no organomegaly, quiet bowel sounds Vascular: Normal peripheral pulses, normal capillary refill. Musculoskeletal: Normal range of motion, nontender back Neurologic: Alert and oriented ?3, MANAGER [employer] is normal as tested, no gross motor deficit Course Vital Signs Vital signs: Vital Signs Temperature 36.9 C 07/22/23 07:35 Pulse Rate 91 07/22/23 07:35 Respiratory Rate 18 07/22/23 07:35 Blood Pressure 119/89 07/22/23 07:35 Pulse Oximetry 98 07/22/23 07:35 Oxygen Delivery Room Air 07/22/23 07:35 Temperature 36.9 C 07/22/23 07:35 Pulse Rate 91 07/22/23 07:35 Respiratory Rate 18 07/22/23 07:35 Blood Pressure 119/89 07/22/23 07:35 Pulse Oximetry 98 07/22/23 07:35 Oxygen Delivery Room Air 07/22
[2023-07-22 07:35] VITALS: BP 119/89; PULSE 91; RESP 18; TEMP 36.9; O2SAT 98
== END 2023-07-22 08:24 | disposition home or self-care (01) ==
PROVIDERS: Emergency Provider Emergency Medicine; PCP Physician Assistant
DX: R21 Rash and other nonspecific skin eruption (principal); G89.29 Other chronic pain; F17.290 Nicotine dependence, other tobacco product, uncomplicated; Z86.19 Personal history of other infectious and parasitic diseases; Z59.00 Homelessness unspecified
CPT/HCPCS: 99283

== ENCOUNTER 2024-11-14 15:23 | Emergency (ER) | payer OTHER, SELFPAY ==
--- NOTE | ~2024-11-14 | CT_ITS ---
EXAMINATION: CT brain wo con DATE: 11/14/2024 20:34 INDICATION: Altered mental status. TECHNIQUE: Computed tomography (CT) of the head was performed without intravenous contrast. The mA wa s adjusted according to patient size. Iterative reconstruction technique was employed. The dose-lengt h product was 1059.33 mGy-cm. COMPARISON: Head CT 09/13/2019 FINDINGS: There is no intracranial hemorrhage, acute infarction, or abnormal intracranial mass lesion . The ventricles are normal in size. The paranasal sinuses are clear. The orbits are normal. The mast oid air cells are normal. IMPRESSION: 1. Normal brain. Reviewed, dictated and finalized at location A. ZINE JOURNALIST IMPRESSION: 1. Normal brain.
[2024-11-14 15:23] VITALS: BP 129/87; PULSE 87; RESP 16; TEMP 36.8; O2SAT 100
--- NOTE | 2024-11-14 15:28 | ECG_ITS ---
Test Date: 2024-11-14 15:48:30 Measurements Intervals [place] Rate: 95 P: 65 [place]: 170 QRS: 81 QRSD: 93 T: 59 QT: 352 QTc: 444 Interpretive Statements SINUS RHYTHM No previous ECG available for comparison Electronically Signed On 11-15-2024 15:49:37 SPORTS PHYSIOTHERAPIST by Sukhjinder Lew M.D.
--- NOTE | 2024-11-14 15:29 | ED.GENADULT ---
HPI - General Adult General Chief complaint: Altered Mental Status <Osmany Sears MD - Last Filed: 11/15/24 13:02> Stated complaint: vomiting <Osmany Sears MD - Last Filed: 11/15/24 13:02> Time Seen by Provider: 11/14/24 23:44 <Osmany Sears MD - Last Filed: 11/15/24 13:02> History of Present Illness HPI narrative: 44-year-old male present to the emergency department for evaluation after calling for help from his hotel room. A technical publications manager had to break into the hotel room. Patient was declining to be interacted with but was asking for help. Patient does report he has a prior history of HIV. Patient does not provide any additional history. Patient is having emesis upon arrival to the emergency department. <Osmany Sears MD - Last Filed: 11/15/24 13:02> Related Data Allergies/adverse reactions: Allergies Allergy/AdvReac Type Severity Reaction Status Date / Time No Known Allergies Allergy Unknown Verified 07/22/23 07:51 <Osmany Sears MD - Last Filed: 11/15/24 13:02> Review of Systems Review of Systems: All systems reviewed & are unremarkable except as noted in HPI and below <Osmany Sears MD - Last Filed: 11/15/24 13:02> [facility] Past Medical History Medical History: Medical History Cellulitis (07/2020) Chronic pain Hepatitis C Homelessness Intravenous drug abuse Splenic laceration (07/03/21) The patient was transferred to [place]. He reports that he is hospitalized for several days and they were getting ready to discharge him the next day so he decided to leave [facility] <Osmany Sears MD - Last Filed: 11/15/24 13:02> Surgical History Surgical History: Surgical History No pertinent past surgical history <Osmany Sears MD - Last Filed: 11/15/24 13:02> Family History Family History: Family History Mother Psychiatric illness Father , at age 52 Unknown family medical history Grandparent Diabetes mellitus <Osmany Sears MD - Last Filed: 11/15/24 13:02> Social History Social History: Social History Social History: He is homeless. He has had multiple altercations with the law. He has history of tobacco abuse, vaping, IV drug abuse and marijuana use. He does not know anything about his biological father. He states that he has multiple siblings but he does not really know them. He reports that his mother's crazy like all women. He does not have a primary care physician. Smoking status: Current every day smoker Tobacco type: e-cigarettes/vaping Alcohol intake: never Substance use: former Last use: 2 mos ago Gender identity (if verbalized by the patient): Male Spiritual care concerns: No <Osmany Sears MD - Last Filed: 11/15/24 13:02> Course Course Emergency Course: ZYCH 530: Patient signed out pending clinical sobriety. Eventually obtained urine which was very dark. Added a CPK in 2 more L of fluid. CPK was negative. Urine drug screen came back positive for amphetamines. Patient's vital signs normalized. He was monitored until clinically sober. He was aggressive with staff and had to be escorted out by security. <Alexandre Brice MD - Last Filed: 11/15/24 05:36> Vital Signs Vital signs: Vital Signs Temperature 98.2 F 11/14/24 15:23 Pulse Rate 87 11/14/24 15:23 Respiratory Rate 16 11/14/24 15:23 Blood Pressure 129/87 11/14/24 15:23 Pulse Oximetry 100 11/14/24 15:23 Temperature 97.5 F L 11/14/24 20:16 Pulse Rate 80 11/15/24 05:28 Respiratory Rate 16 11/15/24 05:28 Blood Pressure 113/90 11/15/24 05:28 Pulse Oximetry 98 11/15/24 05:28 <Osmany Sears MD - Last Filed: 11/15/24 13:02> Vital Signs Temperature 98.2 F 11/14/24 15:23 Pulse Rate 87 11/14/24 15:23 Respiratory Rate 16 11/14/24 15:23 Blood Pressure 129/87 11/14/24 15:23 Pulse Oximetry 100 11/14/24 15:23 Temperature 97.5 F L 11/14/24 20:16 Pulse Rate 80 11/15/24 05:28 Respiratory Rate 16 11/15/24 05:28 Blood Pressure 113/90 11/15/24 05:28 Pulse Oximetry 98 11/15/24 05:28 <Alexandre Brice MD - Last Filed: 11/15/24 05:36> Medical Decision Making Vital Signs Vital Signs: Vital Signs Temperature 98.2 F 11/14/24 15:23 Pulse Rate 87 11/14/24 15:23 Respiratory Rate 16 11/14/24 15:23 Blood Pressure 129/87 11/14/24 15:23 Pulse Oximetry 100 11/14/24 15:23 Temperature 97.5 F L 11/14/24 20:16 Pulse Rate 80 11/15/24 05:28 Respiratory Rate 16 11/15/24 05:28 Blood Pressure 113/90 11/15/24 05:28 Pulse Oximetry 98 11/15/24 05:28 <Osmany Sears MD - Last Filed: 11/15/24 13:02> Vital Signs Temperature 98.2 F 11/14/24 15:23 Pulse Rate 87 11/14/24 15:23 Respiratory Rate 16 11/14/24 15:23 Blood Pressure 129/87 11/14/24 15:23 Pulse Oximetry 100 11/14/24 15:23 Temperature 97.5 F L 11/14/24 20:16 Pulse Rate 80 11/15/24 05:28 Respiratory Rate 16 11/15/24 05:28 Blood Pressure 113/90 11/15/24 05:28 Pulse Oximetry 98 11/15/24 05:28 <Alexandre Brice MD - Last Filed: 11/15/24 05:36> Lab Data Result diagrams: 11/14/24 15:48 11/14/24 15:48 <Osmany Sears MD - Last Filed: 11/15/24 13:02> Labs: Lab Results 11/14/24 11/14/24 11/14/24 Range/Units 15:47 15:48 23:45 WBC 15.0 H (4.5-10.0) K/mm3 RBC 5.96 (4.6-6.20) M/mm3 Hgb 18.0 D (14.0-18.0) g/dL Hct 53.2 H (42.0-52.0) % MCV 89.3 (80-100) fl MCH 30.2 (26-34) pg MCHC 33.8 (32-36) g/dl RDW 13.7 (11.5-14.5) % Plt Count 236 D (150-375) k/mm3 MPV 8.4 (7.4-10.4) fl Immature Gran % (Auto) Not Reportable Neut % (Auto) Not Reportable Lymph % (Auto) Not Reportable [place] % (Auto) Not Reportable Eos % (Auto) Not Reportable Baso % (Auto) Not Reportable Lymph # (Auto) Not Reportable [place] # (Auto) Not Reportable Eos # (Auto) Not Reportable Baso # (Auto) Not Reportable Abs Immat Gran (auto) Not Reportable Absolute Neuts (auto) Not Reportable Absolute Nucleated RBC Not Reportable Total Counted 100 Neutrophils % (Manual) 82 H (46-73) % Band Neutrophils % 12 H (0-6) % Lymphocytes % (Manual) 1.0 L (18-44) % Monocytes % (Manual) 5 (3-9) % Nucleated RBC % Not Reportable Abs Neuts (Manual) 14.10 H (1.3-6.7) K/mm3 Abs Lymphs (Manual) 0.15 L (1.1-4.5) K/mm3 Abs Monocytes (Manual) 0.75 (0.1-0.90) K/mm3 Nucleated RBCs 1 % Platelet Estimate Adequate (Adequate) Schistocytes None seen Sodium 138 (137-145) mmol/L Potassium 4.3 (3.4-5.0) mmol/L Chloride 103 (98-107) mmol/L Carbon Dioxide 27 (22-30) mmol/L Anion Gap 8 (4-12) mmol/L BUN 17 (9-20) mg/dL Creatinine 1.00 (0.7-1.3) mg/dL Estim Creat Clear Calc 98 ml/min Estimated GFR > 60 (59 - ) Glucose 170 H (65-110) mg/dL Calcium 10.0 (8.4-10.2) mg/dL Magnesium 2.1 (1.6-2.3) mg/dL Total Bilirubin 1.0 (0.2-1.3) mg/dL AST 34 (17-59) U/L ALT 31 (6-50) U/L Alkaline Phosphatase 92 (38-126) U/L Total Creatine Kinase (55-170) U/L Total Protein 9.0 H (6.3-8.2) g/dL Albumin 5.3 H (3.5-5.1) g/dL TSH (Reflex) 1.230 (0.465-4.68) uIU/mL Urine Color Yellow (Yellow) Urine Appearance Clear (Clear) Urine pH 5.5 (5.0-9.0) Ur Specific [place] 1.029 (1.001-1.035) Urine Protein 1+ H (Negative) mg/dL Urine Glucose (UA) Negative (Negative) mg/dL Urine Ketones Negative (Negative) mg/dL Ur Blood (Man) Negative (Negative) Urine Nitrate Negative (Negative) Urine Bilirubin Negative (Negative) Urine Urobilinogen 0.2 (<2.0) mg/dL Leukocyte Esterase Rfl Negative (Negative) MIKAEL/UL Urine RBC 0-2 (0-2) /hpf Urine WBC 0-5 (0-3) /hpf Ur Squamous Epith Cells None seen (Few) /hpf Urine Bacteria None seen /hpf Urine Casts 3-5 Salicylates < 1.0 L (2-20) mg/dL Urine Opiates Screen Negative (Negative) Urine Methadone Screen Negative (Negative) Acetaminophen < 10 L (10-30) ug/mL Ur Barbiturates Screen Negative (Negative) Ur Phencyclidine Scrn Negative (Negative) Ur Amphetamine Screen Positive A (Negative) U Benzodiazepines Scrn Negative (Negative) Urine Cocaine Screen Negative (Negative) U Cannabinoids Screen Negative (Negative) Ethyl Alcohol < 10 (<10) mg/dL 11/14/ Range/Units 23:56 WBC (4.5-10.0) K/mm3 RBC (4.6-6.20) M/mm3 Hgb (14.0-18.0) g/dL Hct (42.0-52.0) % MCV (80-100) fl MCH (26-34) pg MCHC (32-36) g/dl RDW (11.5-14.5) % Plt Count (150-375) k/mm3 MPV (7.4-10.4) fl Immature Gran % (Auto) Neut % (Auto) Lymph % (Auto) [place] % (Auto) Eos % (Auto) Baso % (Auto) Lymph # (Auto) [place] # (Auto) Eos # (Auto) Baso # (Auto) Abs Immat Gran (auto) Absolute Neuts (auto) Absolute Nucleated RBC Total Counted Neutrophils % (Manual) (46-73) % Band Neutrophils % (0-6) % Lymphocytes % (Manual) (18-44) % Monocytes % (Manual) (3-9) % Nucleated RBC % Abs Neuts (Manual) (1.3-6.7) K/mm3 Abs Lymphs (Manual) (1.1-4.5) K/mm3 Abs Monocytes (Manual) (0.1-0.90) K/mm3 Nucleated RBCs % Platelet Estimate (Adequate) Schistocytes Sodium (137-145) mmol/L Potassium (3.4-5.0) mmol/L Chloride (98-107) mmol/L Carbon Dioxide (22-30) mmol/L Anion Gap (4-12) mmol/L BUN (9-20) mg/dL Creatinine (0.7-1.3) mg/dL Estim Creat Clear Calc ml/min Estimated GFR (59 - ) Glucose (65-110) mg/dL Calcium (8.4-10.2) mg/dL Magnesium (1.6-2.3) mg/dL Total Bilirubin (0.2-1.3) mg/dL AST (17-59) U/L ALT (6-50) U/L Alkaline Phosphatase (38-126) U/L Total Creatine Kinase 160 (55-170) U/L Total Protein (6.3-8.2) g/dL Albumin (3.5-5.1) g/dL TSH (Reflex) (0.465-4.68) uIU/mL Urine Color (Yellow) Urine Appearance (Clear) Urine pH (5.0-9.0) Ur Specific [place] (1.001-1.035) Urine Protein (Negative) mg/dL Urine Glucose (UA) (Negative) mg/dL Urine Ketones (Negative) mg/dL Ur Blood (Man) (Negative) Urine Nitrate (Negative) Urine Bilirubin (Negative) Urine Urobilinogen (<2.0) mg/dL Leukocyte Esterase Rfl (Negative) MIKAEL/UL Urine RBC (0-2) /hpf Urine WBC (0-3) /hpf Ur Squamous Epith Cells (Few) /hpf Urine Bacteria /hpf Urine Casts Salicylates (2-20) mg/dL Urine Opiates Screen (Negative) Urine Methadone Screen (Negative) Acetaminophen (10-30) ug/mL Ur Barbiturates Screen (Negative) Ur Phencyclidine Scrn (Negative) Ur Amphetamine Screen (Negative) U Benzodiazepines Scrn (Negative) Urine Cocaine Screen (Negative) U Cannabinoids Screen (Negative) Ethyl Alcohol (<10) mg/dL <Osmany Sears MD - Last Filed: 11/15/24 13:02> Lab Results 11/14/24 11/14/24 11/14/24 Range/Units 15:47 15:48 23:45 WBC 15.0 H (4.5-10.0) K/mm3 RBC 5.96 (4.6-6.20) M/mm3 Hgb 18.0 D (14.0-18.0) g/dL Hct 53.2 H (42.0-52.0) % MCV 89.3 (80-100) fl MCH 30.2 (26-34) pg MCHC 33.8 (32-36) g/dl RDW 13.7 (11.5-14.5) % Plt Count 236 D (150-375) k/mm3 MPV 8.4 (7.4-10.4) fl Immature Gran % (Auto) Not Reportable Neut % (Auto) Not Reportable Lymph % (Auto) Not Reportable [place] % (Auto) Not Reportable Eos % (Auto) Not Reportable Baso % (Auto) Not Reportable Lymph # (Auto) Not Reportable [place] # (Auto) Not Reportable Eos # (Auto) Not Reportable Baso # (Auto) Not Reportable Abs Immat Gran (auto) Not Reportable Absolute Neuts (auto) Not Reportable Absolute Nucleated RBC Not Reportable Total Counted 100 Neutrophils % (Manual) 82 H (46-73) % Band Neutrophils % 12 H (0-6) % Lymphocytes % (Manual) 1.0 L (18-44) % Monocytes % (Manual) 5 (3-9) % Nucleated RBC % Not Reportable Abs Neuts (Manual) 14.10 H (1.3-6.7) K/mm3 Abs Lymphs (Manual) 0.15 L (1.1-4.5) K/mm3 Abs Monocytes (Manual) 0.75 (0.1-0.90) K/mm3 Nucleated RBCs 1 % Platelet Estimate Adequate (Adequate) Schistocytes None seen Sodium 138 (137-145) mmol/L Potassium 4.3 (3.4-5.0) mmol/L Chloride 103 (98-107) mmol/L Carbon Dioxide 27 (22-30) mmol/L Anion Gap 8 (4-12) mmol/L BUN 17 (9-20) mg/dL Creatinine 1.00 (0.7-1.3) mg/dL Estim Creat Clear Calc 98 ml/min Estimated GFR > 60 (59 - ) Glucose 170 H (65-110) mg/dL Calcium 10.0 (8.4-10.2) mg/dL Magnesium 2.1 (1.6-2.3) mg/dL Total Bilirubin 1.0 (0.2-1.3) mg/dL AST 34 (17-59) U/L ALT 31 (6-50) U/L Alkaline Phosphatase 92 (38-126) U/L Total Creatine Kinase (55-170) U/L Total Protein 9.0 H (6.3-8.2) g/dL Albumin 5.3 H (3.5-5.1) g/dL TSH (Reflex) 1.230 (0.465-4.68) uIU/mL Urine Color Yellow (Yellow) Urine Appearance Clear (Clear) Urine pH 5.5 (5.0-9.0) Ur Specific [place] 1.029 (1.001-1.035) Urine Protein 1+ H (Negative) mg/dL Urine Glucose (UA) Negative (Negative) mg/dL Urine Ketones Negative (Negative) mg/dL Ur Blood (Man) Negative (Negative) Urine Nitrate Negative (Negative) Urine Bilirubin Negative (Negative) Urine Urobilinogen 0.2 (<2.0) mg/dL Leukocyte Esterase Rfl Negative (Negative) MIKAEL/UL Urine RBC 0-2 (0-2) /hpf Urine WBC 0-5 (0-3) /hpf Ur Squamous Epith Cells None seen (Few) /hpf Urine Bacteria None seen /hpf Urine Casts 3-5 Salicylates < 1.0 L (2-20) mg/dL Urine Opiates Screen Negative (Negative) Urine Methadone Screen Negative (Negative) Acetaminophen < 10 L (10-30) ug/mL Ur Barbiturates Screen Negative (Negative) Ur Phencyclidine Scrn Negative (Negative) Ur Amphetamine Screen Positive A (Negative) U Benzodiazepines Scrn Negative (Negative) Urine Cocaine Screen Negative (Negative) U Cannabinoids Screen Negative (Negative) Ethyl Alcohol < 10 (<10) mg/dL 11/14/24 Range/Units 23:56 WBC (4.5-10.0) K/mm3 RBC (4.6-6.20) M/mm3 Hgb (14.0-18.0) g/dL Hct (42.0-52.0) % MCV (80-100) fl MCH (26-34) pg MCHC (32-36) g/dl RDW (11.5-14.5) % Plt Count (150-375) k/mm3 MPV (7.4-10.4) fl Immature Gran % (Auto) Neut % (Auto) Lymph % (Auto) [place] % (Auto) Eos % (Auto) Baso % (Auto) Lymph # (Auto) [place] # (Auto) Eos # (Auto) Baso # (Auto) Abs Immat Gran (auto) Absolute Neuts (auto) Absolute Nucleated RBC Total Counted Neutrophils % (Manual) (46-73) % Band Neutrophils % (0-6) % Lymphocytes % (Manual) (18-44) % Monocytes % (Manual) (3-9) % Nucleated RBC % Abs Neuts (Manual) (1.3-6.7) K/mm3 Abs Lymphs (Manual) (1.1-4.5) K/mm3 Abs Monocytes (Manual) (0.1-0.90) K/mm3 Nucleated RBCs % Platelet Estimate (Adequate) Schistocytes Sodium (137-145) mmol/L Potassium (3.4-5.0) mmol/L Chloride (98-107) mmol/L Carbon Dioxide (22-30) mmol/L Anion Gap (4-12) mmol/L BUN (9-20) mg/dL Creatinine (0.7-1.3) mg/dL Estim Creat Clear Calc ml/min Estimated GFR (59 - ) Glucose (65-110) mg/dL Calcium (8.4-10.2) mg/dL Magnesium (1.6-2.3) mg/dL Total Bilirubin (0.2-1.3) mg/dL AST (17-59) U/L ALT (6-50) U/L Alkaline Phosphatase (38-126) U/L Total Creatine Kinase 160 (55-170) U/L Total Protein (6.3-8.2) g/dL Albumin (3.5-5.1) g/dL TSH (Reflex) (0.465-4.68) uIU/mL Urine Color (Yellow) Urine Appearance (Clear) Urine pH (5.0-9.0) Ur Specific [place] (1.001-1.035) Urine Protein (Negative) mg/dL Urine Glucose (UA) (Negative) mg/dL Urine Ketones (Negative) mg/dL Ur Blood (Man) (Negative) Urine Nitrate (Negative) Urine Bilirubin (Negative) Urine Urobilinogen (<2.0) mg/dL Leukocyte Esterase Rfl (Negative) MIKAEL/UL Urine RBC (0-2) /hpf Urine WBC (0-3) /hpf Ur Squamous Epith Cells (Few) /hpf Urine Bacteria /hpf Urine Casts Salicylates (2-20) mg/dL Urine Opiates Screen (Negative) Urine Methadone Screen (Negative) Acetaminophen (10-30) ug/mL Ur Barbiturates Screen (Negative) Ur Phencyclidine Scrn (Negative) Ur Amphetamine Screen (Negative) U Benzodiazepines Scrn (Negative) Urine Cocaine Screen (Negative) U Cannabinoids Screen (Negative) Ethyl Alcohol (<10) mg/dL <Alexandre Brice MD - Last Filed: 11/15/24 05:36> Discharge Plan Discharge Clinical Impression: Amphetamine abuse <Osmany Sears MD - Last Filed: 11/15/24 13:02> Patient Disposition: Home, Self-Care <Osmany Sears MD - Last Filed: 11/15/24 13:02> Condition: Stable <Osmany Sears MD - Last Filed: 11/15/24 13:02> Instructions: Antibiotic Form, Methamphetamine Use Disorder (ED) <Osmany Sears MD - Last Filed: 11/15/24 13:02> Additional Instructions: Please refrain from using methamphetamines. <Osmany Sears MD - Last Filed: 11/15/24 13:02> Patient Language: Micronesian <Osmany Sears MD - Last Filed: 11/15/24 13:02> Prescriptions: No Action amoxicillin-pot clavulanate 875-125 mg tablet 1 tablet PO Q12H 10 Days Qty: 20 0RF prednisone 20 mg tablet 40 mg PO DAILY 5 Days Qty: 10 0RF Zyrtec 10 mg capsule 10 mg PO BID PRN (Reason: allergy symptoms) Qty: 30 0RF <Osmany Sears MD - Last Filed: 11/15/24 13:02> Follow-up/Referrals: Flakita,DARIN Arthur [Primary Care Provider] - <Osmany Sears MD - Last Filed: 11/15/24 13:02>
[2024-11-14] MEDS: METOCLOPRAMIDE HCL INJ 10 MG/2 ML VIAL IV PUSH (15:51)
[2024-11-14] MEDS: diphenhydrAMINE HCl INJ 50 MG/ML VIAL IV PUSH (15:51)
[2024-11-14] MEDS: SODIUM CHLORIDE 0.9% IV 1,000 ML 999 ML IV CONT ×2 (15:51→22:08)
[2024-11-14 16:09] LABS: Hematocrit 53.2 % (42.0-52.0); Mean Corpuscular HGB Conc 33.8 g/dl (32-36); Mean Corpuscular Hemoglobin 30.2 pg (26-34); Mean Corpuscular Volume 89.3 fl (80-100); Mean Platelet Volume 8.4 fl (7.4-10.4); Platelet Count Result 236 k/mm3 (150-375); Red Blood Count 5.96 M/mm3 (4.6-6.20); Red Cell Distribution Width 13.7 % (11.5-14.5)
[2024-11-14 16:18] LABS: Acetaminophen < 10 ug/mL (10-30); Ethanol < 10 mg/dL (<10); Salicylate < 1.0 mg/dL (2-20)
[2024-11-14 16:21] LABS: Alanine Aminotransferase 31 U/L (6-50); Albumin Level 5.3 g/dL (3.5-5.1); Alkaline Phosphatase 92 U/L (38-126); Anion Gap 8 mmol/L (4-12); Aspartate Amino Transferase 34 U/L (17-59); Blood Urea Nitrogen 17 mg/dL (9-20); Carbon Dioxide 27 mmol/L (22-30); Chloride 103 mmol/L (98-107); Estimated CRCL calculation 98 ml/min; Estimated Glomerular Filt Rate > 60; Glucose 170 mg/dL (65-110); Potassium 4.3 mmol/L (3.4-5.0); Sodium 138 mmol/L (137-145)
[2024-11-14] MEDS: LORazepam INJ (*CRX) 2 MG/ML VIAL 1 MG IV PUSH (16:35)
[2024-11-14] MEDS: ONDANSETRON INJ 4 MG/2 ML VIAL IV PUSH (16:35)
[2024-11-14 16:40] LABS: Band Neutrophils Percent 12 % (0-6); Lymphocytes Absolute Manual 0.15 K/mm3 (1.1-4.5); Monocytes Absolute Manual 0.75 K/mm3 (0.1-0.90); Monocytes Percent Manual 5 % (3-9); Neutrophils Percent Manual 82 % (46-73); Nucleated Red Blood Cells 1 %; Platelet Estimate Adequate (Adequate); Total Cells Counted 100
[2024-11-14 16:41] LABS: Schistocytes None Seen
[2024-11-14 16:42] LABS: Magnesium 2.1 mg/dL (1.6-2.3)
--- NOTE | 2024-11-14 17:58 | PC.NURSE ---
After starting IV and giving nausea medicine pt yelling cover me up right now! gave pt multiple warm blankets. pt restless and unable to get comfortable in bed. continues to reposition himself and yelling at this RN to cover him in warm blankets. attempting to reposition pt and make him comfortable. pt being uncooperative and yells Just do what I am telling you to do! pt pulled of BP cuff, pulse ox and monitor. pt refusing another set of vital signs. Per Dr. Sears, to give 1mg of Ativan for anxiety. after giving Ativan pt has loose bowel movement on himself and on the floor. multiple RN's in room cleaning pt up. pt yells, quit assaulting me! multiple RN's explained to pt that we are not assaulting him and that we are just trying to clean the stool off of him. pt yells Just get the fuck off of me! call me an Uber so I can get the hell out of here! asked pt what his name is and where he is at right now. pt pauses and then yells, I am Yair Hitler Dr. Sears made aware of the situation. he states to cancel the urine order and let pt rest in stretcher. pt is still refusing vital signs. pt is lying in stretcher with equal chest rise and fall.
[2024-11-14 20:16] VITALS: BP 133/72; PULSE 122; RESP 16; TEMP 36.4; O2SAT 100
[2024-11-14 23:57] LABS: Add Urine Microscopic? YES; Appearance Urine Clear (Clear); Bacteria Urine None Seen /hpf; Bilirubin Urine Negative (Negative); Blood Urine Negative (Negative); Color Urine Yellow (Yellow); Glucose Urine UA Negative (Negative); Ketones Urine Negative (Negative); Leukocyte Esterase Ur Negative LEU/UL (Negative); Nitrate Urine Negative (Negative); Protein Urine 1+ mg/dL (Negative); RBC Urine 0-2 /hpf (0-2); Specific Grav Ur 1.029 (1.001-1.035); Squamous Epithelial Cell Urine None Seen /hpf (Few); Urobilinogen Urine 0.2 mg/dL (<2.0); WBC Urine 0-5 /hpf (0-3); pH Urine 5.5 (5.0-9.0)
[2024-11-15] MEDS: SODIUM CHLORIDE 0.9% IV 2,000 ML 999 ML IV CONT (00:01)
[2024-11-15 00:07] LABS: Barbiturate Screen Urine Negative (Negative); Benzodiazepines Screen Urine Negative (Negative)
[2024-11-15 00:08] LABS: Cannabinoid Screen Urine Negative (Negative); Cocaine Screen Urine Negative (Negative); Methadone Screen Urine Negative (Negative); Opiate Screen Urine Negative (Negative); Phencyclidine Screen Urine Negative (Negative)
[2024-11-15 00:09] VITALS: BP 119/75; PULSE 101; RESP 14; O2SAT 98
[2024-11-15 00:16] LABS: Creatine Kinase 160 U/L (55-170)
[2024-11-15 00:25] LABS: Amphetamine Screen Urine Positive (Negative)
[2024-11-15 03:57] VITALS: BP 103/68; PULSE 91; RESP 14; O2SAT 100
--- NOTE | 2024-11-15 03:58 | PC.NURSE ---
Pt has remained asleep since this RN assumed care @1900.
[2024-11-15 05:28] VITALS: BP 113/90; PULSE 80; RESP 16; O2SAT 98
--- NOTE | 2024-11-15 06:43 | PC.NURSE ---
When this RN took over pt care at 1900, pts legs, arms, hands, feet were covered in feces. Ed stretcher was covered in liquid feces. Pt refused to let staff clean feces off of him. Pt then rested in room from [id number]. @0500 this RN went to pt room to wake pt. Pt woke up and immediately became verbally aggressive. Pt made multiple derogatory statements to this RN. Pt accused staff of stealing his belongings. Pt arrived to ed with only jeans on, this RN offered multiple times to give pt socks and a shirt. pt began screaming at this RN order me an uber you fucking bitch . Pt then ran out of room and into ems bay and began drinking sodas and eating food out of fridge. Security was present at this time and pt walked out of EMS doors and sat in ED [address] and continued his verbal aggression towards security. This RN contacted Yamileth HANNA who then removed pt from premises.
== END 2024-11-15 07:17 | disposition home or self-care (01) ==
PROVIDERS: Emergency Medicine; Emergency Provider Emergency Medicine; PCP Physician Assistant
DX: F15.10 Other stimulant abuse, uncomplicated (principal); B19.20 Unspecified viral hepatitis C without hepatic coma; G89.29 Other chronic pain; Z21 Asymptomatic human immunodeficiency virus [HIV] infection status; F17.290 Nicotine dependence, other tobacco product, uncomplicated; Z59.01 Sheltered homelessness
CPT/HCPCS: 36415; 70450; 80053; 80143; 80179; 80307; 81001; 82077; 82550; 83735; 84443; 85025; 93005; 96361; 96374; 96375; 99284; J1200; J2060; J2405; J2765; J7030